=== PATIENT | female | born 1940 | race Caucasian/White ===

== ENCOUNTER 2017-07-11 07:04 | Observation (INO) | payer MEDICARE, OTHER ==
[2017-07-11 08:41] LABS: ABS Basophils 0.1 10^3/ul (0-0.2); ABS Eosinophils 0.1 10^3/ul (0-0.6); ABS Monocytes 0.6 10^3/ul (0-0.8); ABS Neutrophils 5.8 10^3/ul (1.5-7.7); ABS Nucleated RBC 0 10^3/ul; Eosinophil % 1.2 % (0-6); Hematocrit 46 % (35-47); Hemoglobin 15.4 g/dl (12.0-16.0); Lymphocyte % 23.1 % (25-47); Mean Corpuscular HGB Conc 33 g/dl (31-36); Mean Corpuscular Hemoglobin 30 pg (27-31); Mean Corpuscular Volume 91 fL (80-97); Mean Platelet Volume 7.3 um3 (7.4-10.4); Nucleated Red Blood Cells % 0.1; Platelet Count 276 10^3/ul (150-450); Red Blood Count 5.08 10^6/ul (4.0-5.4); Red Cell Distribution Width 14 % (10.5-15); White Blood Count 8.4 10^3/ul (3.5-10.8)
[2017-07-11 09:02] LABS: EGFR Non-African American 66.5 (>60)
[2017-07-11] MEDS ORDERED: Aspirin 81 mg CHEW TAB* 81 MG TAB.CHEW PO ONE (09:53)
[2017-07-11] MEDS ORDERED: Metoprolol Tartrate IV* 1 MG/ML 5 ML VIAL IV ONE (09:54)
[2017-07-11] MEDS ORDERED: hydrALAZINE IV* 20 MG/ML VIAL IV SLOW PU PRN (11:56)
[2017-07-11] MEDS ORDERED: Acetaminophen TAB* 325 MG PO PRN (11:56)
[2017-07-11] MEDS ORDERED: Ondansetron INJ* 2 MG/ML VIAL IV PRN (11:56)
[2017-07-11] MEDS ORDERED: amLODIPine TAB* 5 MG PO SCH (12:00)
[2017-07-11] MEDS ORDERED: cloNIDine TAB* 0.1 MG ONE (12:12)
[2017-07-11] MEDS: Losartan TAB* 25 MG PO SCH (12:15)
[2017-07-11] MEDS: cloNIDine TAB* 0.1 MG PO SCH ×2 (12:15→21:07)
[2017-07-11] MEDS: Spironolactone TAB* 25 MG PO SCH (12:15)
--- NOTE | 2017-07-11 12:37 | RAD ---
HISTORY: Hypertensive urgency, history of intracranial hemorrhage COMPARISONS: None TECHNIQUE: Multiple contiguous axial CT scans were obtained of the head without intravenous contrast. FINDINGS: HEMORRHAGE/INFARCT: There is no hemorrhage or acute infarct. MASSES/SHIFT: There is no mass or shift. EXTRA-AXIAL SPACES: There are no extra-axial fluid collections. SULCI AND VENTRICLES: The sulci and ventricles are normal in size and position for the patient's stated age. CEREBRUM: There is hypoattenuation of the periventricular and subcortical white matter. BRAINSTEM: There are no focal parenchymal abnormalities. CEREBELLUM: There are no focal parenchymal abnormalities. VESSELS: The vessels are grossly normal. PARANASAL SINUSES: The paranasal sinuses are clear. ORBITS: The orbits are unremarkable. BONES AND SOFT TISSUE: Abdominal conclusions cysts are noted of the scalp. OTHER: None IMPRESSION: NO ACUTE INTRACRANIAL PATHOLOGY. CHRONIC SMALL VESSEL ISCHEMIC CHANGE
--- NOTE | 2017-07-11 15:36 | HP ---
CC: Dr. Rosalio Carter * HISTORY AND PHYSICAL: DATE OF ADMISSION: 07/11/17 PRIMARY CARE PROVIDER: Dr. Rosalio Carter from [place]. ATTENDING PHYSICIAN WHILE IN THE HOSPITAL: Dr. Christel Pollock * (report dictated by Isaias Recinos NP) CHIEF COMPLAINT: 1. Elevated blood pressure. 2. Chest tightness. HISTORY OF PRESENT ILLNESS: Ms. Campbell is a 76-year-old female patient. 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 She said she was at [place] in [facility] for this and since then has been having issues with her blood pressure. She said she has had longstanding hypertension for 10 plus years and she has been on numerous medications. She said she finally got on losartan, which has been managing her blood pressure well and then in May, she was having issues again and the patient went to [place] with complaints of headache and elevated blood pressure and was found to have an intracranial hemorrhage. They discharged her from [facility] on metoprolol. She had intolerance to this and was on spironolactone. Nonetheless, she comes in today. She takes her blood pressure several times a day and she was taking it last night and it was elevated and she kept repeating it and her blood pressure kept going up as high as 200 systolic. She started having chest tightness in to her jaw and into her chest. She felt nauseous. She denied having any shortness of breath. She denied having any headache. No blurry vision. No weakness to one side. She went to bed and woke up this morning still feeling that like her blood pressure was high. She checked and was sure enough it was in the 190 to 200 systolic range. She was concerned. She was not going to wait until her primary opened up at 8 or 9 o'clock this morning, so she decided to come in to the ER. She again denies having headache. She does not have any abdominal pain. She says that she does not feel nauseous anymore. There is no more chest tightness. She never felt short of breath. There was concern though because of the blood pressure and chest tightness, and we were asked to evaluate for admission. PAST MEDICAL HISTORY: Significant for: 1. Hypertension. 2. Hypothyroidism. 3. History of hemorrhagic CVA. PAST SURGICAL HISTORY: The patient has had: 1. Cholecystectomy. 2. Cataract extraction. MEDICATIONS: Home meds include: 1. Losartan 100 mg p.o. daily. 2. Aldactone 25 mg daily. 3. Synthroid 50 mcg daily. ALLERGIES TO MEDICATIONS: Include PREDNISONE. FAMILY HISTORY: Her mother was diabetic. Father had an MS in 70s. SOCIAL HISTORY: She does not smoke. Does not drink. She lives alone. Surrogate decision maker is her son, Frandy. REVIEW OF SYSTEMS: There is no documented fever. She denied having any significant weight change. There was no ear discharge. She denies having any rhinorrhea. There is no sore throat. No thyroid enlargement. There is no chest pain now, but there was from my HPI. There is no abdominal pain. There was nausea, but no vomiting. No dysuria, no frequency. No seizure, no loss of consciousness. No pruritus and no skin ulcerations. Review of 14 systems completed, all others negative. PHYSICAL EXAMINATION GENERAL: At this time, Ms. Campbell is a 76-year-old female patient. She is sitting in the ED stretcher. She does not appear to be in any acute distress. VITAL SIGNS: Blood pressure 178/76, pulse 61, respirations 15, O2 sat 97%, temperature 98.2. HEENT: Head: Atraumatic, normocephalic. Eyes: EOMs intact. Sclerae anicteric, not pale. Throat: Oral mucosa appears to be moist. No oropharyngeal erythema. NECK: Supple. LUNGS: Clear to auscultation bilaterally. No wheezes, rales, or rhonchi. HEART: Sounds S1, S2. Regular rate and rhythm. No murmurs, rubs, or gallops. ABDOMEN: Soft, flat, nontender. Bowel sounds present. EXTREMITIES: Pulses were 2+ throughout. She is moving all 4 extremities with 5 /5 strength. NEUROLOGIC: She is awake, alert, she is oriented x3. Her charging manipulator were equal. Tongue was midline. She has no gross focal deficits. Speech was clear. SKIN: Intact. DIAGNOSTIC STUDIES/LAB DATA: WBC 8.4, RBC of 5.08, hemoglobin 15.4, hematocrit of 46, platelet count of 276. Sodium 126, potassium , chloride of 96, bicarb 23, BUN 19, creatinine of 0.83, glucose 144, lactate 0.9, calcium 9.6. Total bili 0.6, AST 17, ALT 17, alk phos 70. Troponin 0.00, repeat troponin 0.00. Albumin of 4.5. She did have an EKG obtained today, which revealed a normal sinus rhythm with a rate of 74, no ST elevations or T-wave inversions are noted. There are no previous EKGs for comparison. Old medical records were limited, but reviewed. ASSESSMENT AND PLAN: Ms. Campbell is a 76-year-old female patient with a longstanding history of hypertension, recent intracranial hemorrhage coming in to the ED today with complaints of chest tightness and elevated blood pressure. We were asked to evaluate for admission. She will be admitted under observation status for: 1. Chest tightness. Again, I suspect this could be related to anxiety or her blood pressure; however, again I do have concern with uncontrolled blood pressure and she could have coronary artery disease. I think she deserves another troponin and a stress test in the morning, lipid panel, and an A1c in the morning and better blood pressure control. I am going to add on some clonidine for the patient and p.r.n. hydralazine and give her, her home medications as she did not take this morning. 2. Hypertensive urgency. At this point, again restart clonidine 0.1 b.i.d., add to her regimen. Continue spironolactone and losartan. I am going to CT her brain because of the history of intracranial hemorrhage. She is not having any neurological symptoms at this point, but I would like to be sure that we are not missing any underlying bleed. I will get the records from [facility] and I will go ahead and order p.r.n. hydralazine as well. She will be placed on telemetry. 3. Hypothyroidism. I am checking her TSH level and if she has hyperthyroid from overmedication for her hypothyroidism, this could certainly be contributing to her blood pressure. So, I am just going to check the TSH. We will continue her Synthroid. 4. History of hemorrhagic cerebrovascular accident. We will get records from [facility]. I am going to avoid heparin subcu on her. She did get an aspirin here in the ED, we are not going to continue this unless there are any significant signs on the stress test. We will go ahead and get records from [facility], CT the brain, and continue to monitor. 5. Hyponatremia. She says her sodium always runs low. I will repeat this in the morning. It is 126. We will monitor and we will try to get old labs from the records as well. 6. DVT prophylaxis. SCDs have been ordered. 7. Code status. She is full code. 8. Fluids, electrolytes, and nutrition. Heart healthy diet has been ordered. TIME SPENT: On the admission was 60 minutes, greater than half the time was spent [id number] with the patient obtaining my history and physical, other half the time was spent going over the plan of care with the patient and implementing plan of care. I did discuss the plan of care with my attending, Dr. Pollock; she is in agreement. ISAIAS RECINOS, JUNE [id number]/[facility] #: [id number] DAYAN
[2017-07-12 05:45] LABS: ABS Basophils 0.1 10^3/ul (0-0.2); ABS Eosinophils 0.3 10^3/ul (0-0.6); ABS Lymphocytes 2.2 10^3/ul (1.0-4.8); ABS Monocytes 0.6 10^3/ul (0-0.8); ABS Neutrophils 4.5 10^3/ul (1.5-7.7); ABS Nucleated RBC 0 10^3/ul; Eosinophil % 3.5 % (0-6); Hematocrit 41 % (35-47); Hemoglobin 13.8 g/dl (12.0-16.0); Lymphocyte % 29.1 % (25-47); Mean Corpuscular HGB Conc 34 g/dl (31-36); Mean Corpuscular Hemoglobin 31 pg (27-31); Mean Corpuscular Volume 90 fL (80-97); Mean Platelet Volume 6.9 um3 (7.4-10.4); Nucleated Red Blood Cells % 0; Platelet Count 248 10^3/ul (150-450); Red Blood Count 4.52 10^6/ul (4.0-5.4); Red Cell Distribution Width 14 % (10.5-15); White Blood Count 7.7 10^3/ul (3.5-10.8)
[2017-07-12] MEDS ORDERED: Levothyroxine TAB* 50 MCG TAB PO SCH (06:00)
[2017-07-12 06:03] LABS: EGFR Non-African American 60.6 (>60)
[2017-07-12] MEDS: Spironolactone TAB* 25 MG PO SCH (08:04)
[2017-07-12] MEDS: Losartan TAB* 25 MG PO SCH (08:04)
[2017-07-12] MEDS: cloNIDine TAB* 0.1 MG PO SCH (08:04)
--- NOTE | 2017-07-12 08:28 | RAD ---
Indication: Elevated blood pressure. Chest pressure. Comparison: April 19, [address] Technique: Upright AP 1218 hours Report: Elevated lung volumes and rarefaction of the interstitial markings. No focal pulmonary lesion, compelling alveolar consolidation, pleural effusion, pneumothorax. RIGHT epicardial fat pad noted. The heart, pulmonary vasculature, and mediastinal contours are unremarkable. IMPRESSION: Stigmata of obstructive lung disease. No acute pulmonary or cardiac process evident.
--- NOTE | 2017-07-12 12:46 | RAD ---
Edited for charges. Indication: Chest pain. Myocardial perfusion scan was performed utilizing 1 day protocol. Rest myocardial perfusion was performed after intravenous injection of 10.2 mCi of technetium 99m tetrofosmin. Treadmill stress study was performed and the maximum heart rate achieved was 93% of the maximum predicted value. 24.3 mCi of technetium 99 and tetrofosmin was injected for the stress portion of the study. There is homogeneous distribution of the radiotracer throughout the left ventricle. There is no significant fixed or reversible perfusion defect identified. The ejection fraction at stress is 75%. Evaluation of wall motion demonstrates no focal wall motion abnormality. IMPRESSION: No evidence of fixed or reversible perfusion defect with normal ejection fraction. ASSESSMENT: Low risk Based on imaging criteria from ACC/AHA 2002 Guideline Update for the Management of Patients With Chronic Stable Angina Table 23. Noninvasive Risk Stratification. Reference. MTDD
[2017-07-12 14:03] LABS: Urine Appearance Clear; Urine Blood Negative (Negative); Urine Color Yellow; Urine Ketones Negative (Negative); Urine Protein Negative (Negative); Urine Specific Gravity 1.013 (1.010-1.030); Urine Urobilinogen Negative (Negative)
[2017-07-12 15:29] VITALS: BP 134/64
--- NOTE | 2017-07-13 04:54 | DS ---
CC: Dr. Sai Carter in [place]; Dr. Campbell, management lead. DISCHARGE SUMMARY: DATE OF ADMISSION: 07/11/17 DATE OF DISCHARGE: 07/12/17 PRIMARY CARE PHYSICIAN: Dr. Sai Carter in [place]. FORKLIFT MATERIAL HANDLER: Dr. Campbell. DISCHARGE DIAGNOSES: 1. Hypertensive urgency. 2. Chest tightness. 3. Acute coronary syndrome ruled out, negative stress test. 4. Hyponatremia, secondary to possible syndrome of inappropriate antidiuretic hormone secretion. SECONDARY DIAGNOSES: 1. Hypertension. 2. Hypothyroidism. 3. History of hemorrhagic cerebrovascular accident. MEDICATIONS: 1. Losartan 100 mg p.o. daily. 2. Spironolactone 25 mg p.o. daily. 3. Levothyroxine 50 mcg p.o. daily. New Medications: Amlodipine 5 mg p.o. daily. HOSPITAL COURSE: Ms. aCmpbell is a 76 years old lady with a past medical history as stated above that presented to the emergency room with complaints of chest tightness and elevated blood pressure. The patient states that she has had hypertension for more than 10 years and it was well controlled on losartan only. She states that in April 2016 she took a course of prednisone and at that time her blood pressure became very uncontrolled. She completed her prednisone taper, and around July 2016 her blood pressure was once again controlled. In April 2017, she had the same episode of elevation of her blood pressure, but at that point she was not on steroids. She was admitted to [place] in May with a hemorrhagic CVA, transferred to [facility] and she states that at that point she was started on metoprolol, but she could not tolerate due to fatigue and lightheadedness. This was then changed to spironolactone. Yesterday, she measured her blood pressure and was found to have systolic under 200s. She did have some chest tightness. So, she came to the emergency room for further evaluation. Serial troponins were negative. Her EKG showed no acute ischemic changes and telemetry showed no significant arrhythmia. She underwent a nuclear exercise stress test that showed no evidence of fixed or reversible perfusion defect with normal ejection fraction. The patient also describes being hyponatremic for at least 5 to 6 years, but she does not think she ever had a workup for it. She states that when she was admitted to [facility], her sodium was "dangerously low," but she does not remember receiving any diagnosis about it. On this admission, her sodium was 126 with as serum osmolality of 278 and a urine osmolality of 552 and no symptoms associated with it. 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 I believe patient may have some secondary source of hypertension including renovascular or endocrinologic problems. I did contact her primary care provider about her admission and I also discussed her case with Nephrology (Dr. Campbell). He was willing to see the patient in consultation , but she did not want to wait for him and wished to be discharged today to see him as outpatient. He recommended starting a calcium channel jeovanny. So, amlodipine was added to her regimen. Urine spot creatinine and sodium were also sent, but the results are pending at the time of this dictation. The patient was advised about symptoms that should prompt her return to the emergency room. She was felt to be stable for discharge with well controlled blood pressure at this point. PHYSICAL EXAMINATION: General: The patient is a pleasant elderly lady, sitting up in bed, in no acute distress. Vital Signs: Temperature 98.0, heart rate is 72, respiratory rate 16, oxygen saturation 97% on room air, blood pressure is 134/64. CVS: Normal S1, S2. Regular rate and rhythm. Chest: Breath sounds bilaterally with no no added sounds. Abdomen: Soft, nontender. I do not hear an abdominal murmur. Neuro: She is alert and oriented x3, able to move all 4 extremities. DIET: Low salt diet. ACTIVITY: As tolerated. DISPOSITION: To home. STATUS WHILE IN THE HOSPITAL: Observation. Please keep in mind this is a summarized version of this patient's hospital stay. If you need more information, please feel free to call me at or please obtain the full medical records. Approximately 45 minutes was spent to complete this discharge. [id number]/[facility] #: [id number] DAYAN
== END 2017-07-12 16:10 | disposition home or self-care (01) ==
LOC: ED 07:04 → MEDTELE 11:54
PROVIDERS: ADMIT Internal Medicine; ATTEND Internal Medicine
DX: I16.0 Hypertensive urgency (principal); I10 Essential (primary) hypertension; R07.9 Chest pain, unspecified; E03.9 Hypothyroidism, unspecified; E87.1 Hypo-osmolality and hyponatremia; Z86.73 Personal history of transient ischemic attack (TIA), and cerebral infarction without residual deficits
CPT/HCPCS: 36415; 70450; 71045; 78452; 80048; 80053; 80061; 81003; 82570; 83036; 83605; 83930; 83935; 84300; 84443; 84484; 85025; 93005; 93017; 96374; 99284; A9270-GY; A9502; G0378; J3490

== ENCOUNTER 2017-07-16 06:53 | Emergency (ER) | payer MEDICARE ==
[2017-07-16] MEDS ORDERED: amLODIPine TAB* 5 MG PO ONE (07:22)
[2017-07-16 07:50] LABS: ABS Basophils 0.1 10^3/ul (0-0.2); ABS Eosinophils 0.1 10^3/ul (0-0.6); ABS Lymphocytes 1.8 10^3/ul (1.0-4.8); ABS Monocytes 0.5 10^3/ul (0-0.8); ABS Neutrophils 5.4 10^3/ul (1.5-7.7); ABS Nucleated RBC 0 10^3/ul; Eosinophil % 1.7 % (0-6); Hematocrit 44 % (35-47); Hemoglobin 15.2 g/dl (12.0-16.0); Lymphocyte % 22.7 % (25-47); Mean Corpuscular HGB Conc 35 g/dl (31-36); Mean Corpuscular Hemoglobin 31 pg (27-31); Mean Corpuscular Volume 90 fL (80-97); Mean Platelet Volume 7.2 um3 (7.4-10.4); Nucleated Red Blood Cells % 0.1; Platelet Count 314 10^3/ul (150-450); Red Blood Count 4.92 10^6/ul (4.0-5.4); Red Cell Distribution Width 14 % (10.5-15); White Blood Count 7.9 10^3/ul (3.5-10.8)
[2017-07-16] MEDS ORDERED: Ondansetron ODT TAB* 4 MG PO ONE (07:57)
[2017-07-16 08:01] LABS: EGFR Non-African American 65.6 (>60)
--- NOTE | 2017-07-16 09:20 | RAD ---
INDICATION: Weakness. COMPARISON: Comparison is made with a prior study from July 11, 2017. TECHNIQUE: Dual-energy PA and lateral views of the chest were obtained. FINDINGS: The heart is within normal limits in size. Mediastinal and hilar contours appear within normal limits. The lungs are hyperinflated and clear. No pleural effusion is seen. IMPRESSION: NO EVIDENCE FOR ACTIVE CARDIOPULMONARY DISEASE.
[2017-07-16] MEDS ORDERED: LORazepam TAB(*) 1 MG PO ONE (10:06)
[2017-07-16 10:07] LABS: Urine Appearance Clear; Urine Blood Negative (Negative); Urine Color Yellow; Urine Ketones Negative (Negative); Urine Protein Negative (Negative); Urine Specific Gravity 1.011 (1.010-1.030); Urine Urobilinogen Negative (Negative)
[2017-07-16 10:46] VITALS: BP 141/70
--- NOTE | 2017-07-18 10:52 | ED ---
Steve Olmedo Angela, scribed for Tenzin Degroot MD on 07/16/17 at 0729 . Hypertension - HPI Summary HPI Summary: This pt is a 76 y/o female presenting to [facility] c/o elevated blood pressure. Pt reports that last night she was unable to sleep and during the middle of the night she felt "queasy" nauseous and weak. Denies chest pain, SOB, LE swelling. Pt reports she was admitted last on 07/11 for elevated blood pressure and low sodium. Pt had stress test and blood work by Dr. West. She states after she was discharged 3 days ago her blood pressure was 200/90 in the morning and after taking Amlodipine it decreased to 130s/60s. Pt notes she had the same problem 2 days ago and yesterday, with effect of Amlodipine. Pt called her PCP and has an upcoming appointment tomorrow. She also made an appointment with Dr. Campbell, knit tubing dyer, coming up next week. PMHx: CVA in 2017. - History of Current Complaint Chief Complaint: EDHypertension Stated Complaint: HIGH BP Time Seen by Provider: 07/16/17 07:09 Hx Obtained From: Patient Onset/Duration: Started Days Ago, Still Present Timing: Lasting Days Aggravating Factor(s): Nothing Alleviating Factor(s): Nothing Associated Signs & Symptoms: Anxiety/Stress, Weakness, Other: - POS: nausea. NEG : vomiting, chest pain, SOB, LE swelling - Allergies/Home Medications Allergies/Adverse Reactions: Allergies Allergy/AdvReac Type Severity Reaction Status Date / Time prednisone Allergy See Comment Verified 07/16/17 06:57 Home Medications: Home Medications Losartan TAB* [Cozaar TAB*] 100 mg PO DAILY 07/16/17 [History Confirmed 07/16/17 ] PMH/Surg Hx/FS Hx/Imm Hx Endocrine/Hematology History: Denies: Hx Diabetes Cardiovascular History: Reports: Hx Angina, Hx Hypertension Denies: Hx Hypercholesterolemia Respiratory History: Denies: Hx Asthma Sensory History: Reports: Hx Cataracts - sx, Hx Contacts or Glasses Denies: Hx Hearing Aid Opthamlomology History: Reports: Hx Cataracts - sx, Hx Contacts or Glasses Neurological History: Reports: Hx CVA - in May 2017 Infectious Disease History: No Infectious Disease History: Denies: Traveled Outside the [place] in Last 30 Days - Family History Known Family History: Positive: Cardiac Disease - Father: [place] in the 70s., Diabetes - Mother - Social History Alcohol Use: None Substance Use Type: Reports: None Smoking Status (MU): Never Smoked Tobacco Review of Systems Negative: Fever Cardiovascular: Other - elevated blood pressure Negative: Chest Pain Negative: Shortness Of Breath Positive: Nausea. Negative: Vomiting Negative: Edema All Other Systems Reviewed And Are Negative: Yes Physical Exam - Summary Physical Exam Summary: VITAL SIGNS: Reviewed. GENERAL: Patient is a well-developed and nourished female who is lying comfortable in the stretcher. Patient is not in any acute respiratory distress. HEAD AND FACE: No signs of trauma. No ecchymosis, hematomas or skull depressions. No sinus tenderness. EYES: PERRLA, EOMI x 2, No injected conjunctiva, no nystagmus. EARS: Hearing grossly intact. Ear canals and tympanic membranes are within normal limits. MOUTH: Oropharynx within normal limits. NECK: Supple, trachea is midline, no adenopathy, no JVD, no carotid bruit, no c- spine tenderness, neck with full ROM. CHEST: Symmetric, no tenderness at palpation LUNGS: Clear to auscultation bilaterally. No wheezing or crackles. CVS: Regular rate and rhythm, S1 and S2 present, no murmurs or gallops appreciated. ABDOMEN: Soft, non-tender. No signs of distention. No rebound no guarding, and no masses palpated. Bowel sounds are normal. EXTREMITIES: FROM in all major joints, no edema, no cyanosis or clubbing. NEURO: Alert and oriented x 3. No acute neurological deficits. Speech is normal and follows commands. SKIN: Dry and warm Triage Information Reviewed: Yes Vital Signs On Initial Exam: Initial Vitals Temp Pulse Resp BP Pulse Ox 97.8 F 119 20 193/86 99 07/16/17 06:54 07/16/17 06:54 07/16/17 06:54 07/16/17 06:54 07/16/17 06:54 Vital Signs Reviewed: Yes Diagnostics - Vital Signs Vital Signs Temp Pulse Resp BP Pulse Ox 07/16/17 06:54 97.8 F 119 20 193/86 99 - Laboratory Result Diagrams: 07/16/17 07:35 07/16/17 07:35 Lab Statement: Any lab studies that have been ordered have been reviewed, and results considered in the medical decision making process. - Radiology Chest XR Xray Interpretation: No Acute Changes - IMPRESSION: No evidence for active cardiopulmonary disease. Dr. Degroot has reviewed this radiology report. Radiology Interpretation Completed By: Radiologist - EKG 07:36 Cardiac Rate: NL EKG Rhythm: Sinus Rhythm - at 83 bpm EKG Interpretation: No ST elevations. Normal axis. LVH. Re-Evaluation - Re-Evaluation First Eval Re-Evaluation Time: 09:57 Comment: I reviewed the lab and XR results with the pt. Pt will be discharged home. Hypertension Course/Dx - Course Assessment/Plan: This pt is a 76 y/o female presenting to [facility] c/o elevated blood pressure. Pt reports that last night she was unable to sleep and during the middle of the night she felt queasy and weak. Denies chest pain, SOB, LE swelling. Pt reports she was admitted last on 07/11 for elevated blood pressure and low sodium. Pt had stress test and blood work by Dr. West. She states after she was discharged 3 days ago her blood pressure was 200/90 in the morning and after taking Amlodipine it decreased to 130s/60s. Pt notes she had the same problem 2 days ago and yesterday, with effect of Amlodipine. Pt called her PCP and has an upcoming appointment tomorrow. She also made an appointment with Dr. Campbell, knit tubing dyer, coming up next week. PMHx: CVA in 2017. Test results without any significant abnormalities except for sodium of 126. Chest XR shows no evidence for active cardiopulmonary disease. In the ED course the pt was given Zofran for the nausea, amolodipine, and Ativan. At arrival pts blood pressure was 193/86 and after amlodipine her blood pressure decreased to 141/70. Therefore she will be discharged to home with follow up from her PCP and Dr. Campbell as scheduled. Pt seems to be anxious therefore she was given a prescription for Atarax. I discussed all the findings and test results with the patient and son. All questions were answered to patient satisfaction. There were no further complaints or concerns. She is instructed to return to the ED for any worsening or new symptoms. Pt is hemodynamically stable, alert and oriented x3. Dx: Uncontrolled high blood pressure, anxiety, hyponatremia. - Diagnoses Provider Diagnoses: Anxiety, Elevated blood pressure reading with diagnosis of hypertension, Hyponatremia Discharge - Sign-Out/Discharge Documenting (check all that apply): Discharge - discharge to home - Discharge Plan Condition: Stable Disposition: HOME Prescriptions: hydrOXYzine HCL TAB* [Atarax 25 MG TAB*] 25 mg PO TID PRN #20 tab PRN Reason: Anxiety Patient Education Materials: Hyponatremia (ED), Hypertension (ED), Anxiety (ED) Referrals: Sai Carter MD [Primary Care Provider] - Additional Instructions: Please follow up with your primary care provider tomorrow as scheduled. RETURN TO THE ED FOR ANY NEW OR WORSENING SYMPTOMS. The documentation as recorded by the Steve marina Angela accurately reflects the service I personally performed and the decisions made by Zane hamm Walter, MD.
== END 2017-07-16 10:44 | disposition home or self-care (01) ==
LOC: ED 06:53
DX: F41.9 Anxiety disorder, unspecified (principal); E87.1 Hypo-osmolality and hyponatremia; R03.0 Elevated blood-pressure reading, without diagnosis of hypertension
CPT/HCPCS: 36415; 71046; 80053; 81003; 81015; 82533; 82550; 83735; 83880; 83930; 84443; 85025; 87086; 93005; 99283; A9270-GY

== ENCOUNTER 2017-09-04 07:27 | Day surgery (SDC) | payer MEDICARE ==
[~2017-09-04 07:27] MED LIST: Acetaminophen TAB* 325 MG PO PRN; Buffered Lidocaine 0.9% SYRIN* 5 ML/SYR SYRINGE INTRADERM ONE; Midazolam* 1 MG/ML 2 ML VIAL (2 MG) ONE
[2017-09-04 10:14] VITALS: BP 120/66
--- NOTE | 2017-09-04 10:21 | OP ---
DATE OF OPERATION: 09/04/2017 - [facility] DATE OF : 1940. SURGEON: Ernesto Mckenzie M.D. PREOPERATIVE DIAGNOSIS: Cataract right eye. POSTOPERATIVE DIAGNOSIS: Cataract right eye. OPERATIVE PROCEDURE: Extracapsular cataract extraction with intraocular lens implant right eye. DESCRIPTION OF PROCEDURE: The patient was brought to the operating room after being given 1/2% Alcaine with epinephrine drops in the preoperative area. The eye was prepped and draped in the usual sterile fashion. Sterile drape and eyelid speculum were placed. Again, topical 1/2% Alcaine with epinephrine was given. A paracentesis incision was made at the 9 o'clock position with the No.75 blade. Clear cornea incision 2.2 x 2.2-mm was created at the 12 o'clock position starting at the anterior limbus using the 2.2-mm keratome. The anterior chamber was irrigated with 0.4 mL of 1% non-preservative intracameral lidocaine and filled with DisCoVisc. A capsulorrhexis was completed using the cystotome and the Utrata forceps. Hydrodissection was performed with balanced salt solution. The lens nucleus was removed with the Phacoemulsification handpiece without incident. Cortex was removed with the irrigation-aspiration handpiece. The capsular bag was re-inflated using DisCoVisc and an [id number] implant was inserted with the shooter. The irrigation-aspiration handpiece was used to remove all residual DisCoVisc. The eye was refilled with balanced salt solution and the wound checked and found to be watertight. Topical Maxitrol drops were given. [id number]/[facility] #: [id number] [facility]
[2017-09-04] MEDS ORDERED: Neomycin/Polymy/Dex OPTH.SUSP* MAXITROL 0.1% 5 ML ONE (12:28)
[2017-09-04] MEDS ORDERED: Povidone Iodine 5% OPTH* 30 ML BTL ONE (12:28)
[2017-09-04] MEDS ORDERED: Lidocaine 2% EPI 1:200000 MPF*10-20 ML VIAL ONE (12:28)
[2017-09-04] MEDS ORDERED: Phenylephrine 2.5% OPTH.SOL* 2 ML BTL ONE (12:28)
[2017-09-04] MEDS ORDERED: Cyclopentolate 1% OPTH.SOL* 2 ML BTL ONE (12:28)
[2017-09-04] MEDS ORDERED: Lidocaine 1%* 5 ML VIAL ONE (12:28)
[2017-09-04] MEDS ORDERED: acetaZOLAMIDE TAB* 250 MG ONE (12:28)
[2017-09-04] MEDS ORDERED: Proparacaine 0.5% OPHTH.SOL* 15 ML BTL ONE (12:28)
[2017-09-04] MEDS ORDERED: Ketorolac 0.5% OPHTH (NF) 0.5 % 5 ML BTL ONE (12:28)
== END 2017-09-04 10:16 | disposition home or self-care (01) ==
LOC: OREAST 07:27
PROVIDERS: ATTEND Specialist
DX: Z01.818 Encounter for other preprocedural examination (principal); H25.811 Combined forms of age-related cataract, right eye; I10 Essential (primary) hypertension; E03.9 Hypothyroidism, unspecified; E87.1 Hypo-osmolality and hyponatremia; Z68.26 Body mass index [BMI] 26.0-26.9, adult; Z96.1 Presence of intraocular lens
CPT/HCPCS: A9270-GY; J2250; V2632